=== PATIENT | female | born 1980 | race Caucasian/White ===

== ENCOUNTER 2019-08-24 22:58 | Emergency (ER) | payer SELFPAY ==
[~2019-08-24] VITALS: Ht 152.4 cm; Wt 81.6 kg
[2019-08-24 23:13] VITALS: BP 128/80
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
[2019-08-25 01:49] VITALS: BP 128/80
== END 2019-08-25 01:49 | disposition home or self-care (01) ==
LOC: EDBD 22:58 → EMR 23:11
DX: F91.9 Conduct disorder, unspecified (principal)
CPT/HCPCS: 99282